=== PATIENT | female | born 1930 | race Caucasian/White ===

== ENCOUNTER 2017-09-03 15:31 | Inpatient (IN) | payer MEDICARE, MEDICAID ==
[~2017-09-03] VITALS: Ht 152.4 cm; Wt 45.4 kg
[~2017-09-03 15:31] MED LIST: ACET-868 PO; ALPR0.25 PO; AMIN30LI2 PO; ASPI325T2 PO; CARV12.5 PO; CRAN425C PO; DIPH25CA83 PO; DOCU-25 PO; ESTR10TA VG; HALO0.5T4 PO; HYDR-552 PO; MULT1TAB11 PO; NA P133E RC; PSYL660P17 PO; VALS80TA2 PO; ZOLP5TAB2 PO
--- NOTE | 2017-09-03 15:45 | NUR ---
AAOX3, BBPA FROM [facility]: FAILURE TO THRIVE. WEAKNESS x 2 DAYS. RESP IS EVEN AND UNLABORED WITH NAD NOTED. SKIN IS WARM AND DRY. PLACED ON MONITOR. ASSISTED TO HOSPITAL GOWN. AWAITING MD FOR EVAL.
[2017-09-03] MEDS ORDERED: IV NS 0.9% 500 ML BAG IV ONE (16:00)
[2017-09-03 16:20] LABS: BASOPHILS % (AUTO) 0.4 % (0.0-2.0); EOSINOPHILS # (AUTO) 0.2 /CMM (0.0-0.7); EOSINOPHILS % (AUTO) 3.9 % (0.0-6.0); HEMATOCRIT 44 % (33-45); HEMOGLOBIN 14.6 g/dL (11.5-14.8); LYMPHOCYTES # (AUTO) 1.6 /CMM (0.8-4.8); LYMPHOCYTES % (AUTO) 26.9 % (20.0-44.0); MEAN CORPUSCULAR HEMOGLOBIN 31 PG (26.0-33.0); MEAN CORPUSCULAR HGB CONC 33 g/dl (31.0-36.0); MEAN CORPUSCULAR VOLUME 94 fL (82-100); MONOCYTES # (AUTO) 0.7 /CMM (0.1-1.30); MONOCYTES % (AUTO) 11.4 % (2.0-12.0); NEUTROPHILS # (AUTO) 3.4 /CMM (1.8-8.9); NEUTROPHILS % (AUTO) 57.4 % (43.0-81.0); PLATELET COUNT (AUTO) 201 /CMM (150-450); RDW COEFFICIENT OF VARIATION 13.9 (11.5-15.0); RED BLOOD CELL COUNT(AUTO) 4.68 MIL/uL (4.0-5.2); WHITE BLOOD COUNT (AUTO) 5.9 K/uL (4.3-11.0)
--- NOTE | 2017-09-03 16:24 | NUR ---
PT TRANSPORTED TO CT.
[2017-09-03 16:31] LABS: CALCIUM, SERUM 8.7 mg/dL (8.5-10.1); CARBON DIOXIDE 29 mmol/L (21-32); CHLORIDE 103 mmol/L (98-107); CREATININE 0.4 mg/dL (0.6-1.3); GLUCOSE 112 mg/dL (74-106); POTASSIUM 3.9 mmol/L (3.5-5.1); SODIUM SERUM 138 mmol/L (136-145); UREA NITROGEN, BLOOD 19 mg/dL (7-18)
[2017-09-03 16:38] LABS: ALANINE AMINOTRANSFERASE 22 U/L (12-78); ALBUMIN 3.1 g/dL (3.4-5.0); ALKALINE PHOSPHATASE 106 U/L (46-116); ASPARTATE AMINOTRANSFERASE 15 U/L (15-37); BILIRUBIN,DIRECT 0.1 mg/dL (0.0-0.2); BILIRUBIN,TOTAL 0.3 mg/dL (0.2-1.0); TOTAL PROTEIN, SERUM 6.7 g/dL (6.4-8.2)
[2017-09-03 16:44] LABS: THYROID STIMULATING HORMONE 1.484 uIU/mL (0.358-3.74)
[2017-09-03] MEDS ORDERED: ASPIRIN 81 MG TAB.CHEW ONE (16:51)
--- NOTE | 2017-09-03 16:51 | NUR ---
DR. MANNY PACK.
[2017-09-03 16:56] LABS: APPEARANCE,URINE SL CLOUDY (CLEAR); BILIRUBIN,URINE NEGATIVE (NEGATIVE); BLOOD, URINE NEGATIVE Ery/uL (NEGATIVE); COLOR,URINE YELLOW (YELLOW); KETONES,URINE NEGATIVE (NEGATIVE); LEUKOCYTE ESTERASE ,URINE NEGATIVE (NEGATIVE); NITRITE, URINE NEGATIVE (NEGATIVE); PROTEIN,URINE NEGATIVE (NEGATIVE); UGLUCOSE NEGATIVE (NEGATIVE); UROBILINOGEN,URINE 0.2 EU/dL (0.2)
[2017-09-03] MEDS ORDERED: ASPIRIN 81 MG TAB.CHEW PO ONE (17:00)
[2017-09-03] MEDS ORDERED: diphenhydrAMINE HCL 50 MG/ML VIAL ONE (17:28)
[2017-09-03] MEDS ORDERED: diphenhydrAMINE HCL 50 MG/ML VIAL IV PRN (17:30)
--- NOTE | 2017-09-03 17:38 | NUR ---
REPORT GIVEN TO PRIMARY NURSE OF 114-1 BY ERIBERTO BANSAL RN.
[2017-09-03 17:50] VITALS: BP 130/49
--- NOTE | 2017-09-03 17:55 | NUR ---
RN NOTES RECEIVED PT FROM ER VIA DONN. PT IS A&0X1, DEMENTED, YORUBA SPEAKING, ON ROOM AIR NO SOB OR DISTRESS NOTED. SR ON THE TELE MONITOR HR 70. AT BEDSIDE. PT AGITATED, HITTING AND KICKING. L FA 18G IV SITE DRY AND INTACT NO IVF. BED LOCKED AND IN LOWEST POSITION, BED ALARM ON, SIDE RAILS UPX3, WILL MONITOR.
--- NOTE | 2017-09-03 17:55 | NUR ---
RN NOTES PT BROUGHT TO TELE WITH NO ADMITTING ORDERS FROM DR BRYANT. CHARGE NURSE MADE AWARE. WILL PAGE DR BRYANT.
[2017-09-03] MEDS ORDERED: IV NS 0.9% 1,000 ML BAG IV PRN (19:00)
--- NOTE | 2017-09-03 19:30 | NUR ---
BOAT CARPENTER MECHANIC INITIAL NOTE PT RECEIVED IN BED AWAKE. A/O X1 AND ABLE TO MAKE SOME NEEDS KNOWN. NOTED WITH CONFUSION AND RESTLESSNESS. ON ROOM AIR AND SATURATING 98%. BREATHING EVEN, REGULAR AND UNLABORED. ASSISTED WITH DINNER AND PT TOLERATED WELL. IV LFA #18 CLEAN, DRY AND FLUSHING WELL WITH FLUIDS RUNNING. BED IN LOWEST POSITION AND LOCKED IN PLACE BED WITH ALARM ON. CALL LIGHT WITHIN REACH AT ALL TIMES. WILL CONTINUE TO MONITOR.
[2017-09-03 20:00] VITALS: BP 123/60
[2017-09-03] MEDS ORDERED: ESTRADIOL 10 MCG XX SCH (20:00)
[2017-09-03] MEDS ORDERED: ACETAMINOPHEN 325 MG TABLET PO PRN (20:00)
[2017-09-03] MEDS ORDERED: NA PHOS,M-B/NA PHOS,DI-BA 1 EA ENEMA RC PRN (20:00)
[2017-09-03] MEDS ORDERED: HYDROCODONE/APAP 5/325MG 1 EACH TABLET PO PRN (20:00)
[2017-09-03] MEDS: IV NS 0.9% 1,000 ML IV PRN (20:51)
--- NOTE | 2017-09-03 23:00 | NUR ---
PACKAGE LINER NOTE PT PUT ON BILATERAL SOFT WRIST RESTRAINTS D/T HITTING STAFF AND PULLING ON IV LINE/ TELE MONITOR AT BEDSIDE. PT REORIENTED TO PLACE AND TIME D/T NOTED CONFUSION. ENCOURAGED TO VENT FEELINGS AND EXPLAINED REASONS FOR RESTRAINTS. WILL CONTINUE TO MONITOR.
[2017-09-04 04:00] VITALS: BP 151/59
--- NOTE | 2017-09-04 06:58 | NUR ---
BANDING MACHINE OPERATOR CLOSING NOTE PT REMAINED STABLE DURING SHIFT. NO SOB. NO C/O PAIN OR DISCOMFORT NOTED. TELE-SINUS RHYTHM. IV IN PLACE WITH FLUIDS RUNNING. ON BILATERAL SOFT WRIST RESTRAINTS. RECHECKED, CIRCULATION PRESENT AND NO DISCOLORATION NOTED. BED IN LOWEST POSITION AND LOCKED IN PLACE. CALL LIGHT WITHIN REACH. WILL ENDORSE TO NEXT SHIFT FOR CONTINUITY OF CARE.
[2017-09-04 07:18] LABS: BASOPHILS % (AUTO) 0.3 % (0.0-2.0); EOSINOPHILS # (AUTO) 0.3 /CMM (0.0-0.7); EOSINOPHILS % (AUTO) 4.8 % (0.0-6.0); HEMATOCRIT 40 % (33-45); HEMOGLOBIN 13.4 g/dL (11.5-14.8); LYMPHOCYTES # (AUTO) 1.8 /CMM (0.8-4.8); LYMPHOCYTES % (AUTO) 31.3 % (20.0-44.0); MEAN CORPUSCULAR HEMOGLOBIN 31 PG (26.0-33.0); MEAN CORPUSCULAR HGB CONC 34 g/dl (31.0-36.0); MEAN CORPUSCULAR VOLUME 93 fL (82-100); MONOCYTES # (AUTO) 0.6 /CMM (0.1-1.30); MONOCYTES % (AUTO) 10.4 % (2.0-12.0); NEUTROPHILS % (AUTO) 53.2 % (43.0-81.0); PLATELET COUNT (AUTO) 183 /CMM (150-450); RDW COEFFICIENT OF VARIATION 13.5 (11.5-15.0); WHITE BLOOD COUNT (AUTO) 5.6 K/uL (4.3-11.0)
[2017-09-04 07:24] LABS: CALCIUM, SERUM 8.1 mg/dL (8.5-10.1); CHLORIDE 104 mmol/L (98-107); CREATININE 0.4 mg/dL (0.6-1.3); GLUCOSE 89 mg/dL (74-106); POTASSIUM 3.8 mmol/L (3.5-5.1); SODIUM SERUM 139 mmol/L (136-145); UREA NITROGEN, BLOOD 10 mg/dL (7-18)
[2017-09-04 07:38] LABS: CARBON DIOXIDE 27 mmol/L (21-32)
[2017-09-04 08:00] VITALS: BP 165/68
[2017-09-04] MEDS ORDERED: Medication Not On Formulary EA (Cranberry Extract (Cranberry) 850 MG) PO SCH (09:00)
[2017-09-04] MEDS: CARVEDILOL 12.5 MG TABLET PO SCH ×2 (09:02→16:29)
[2017-09-04] MEDS: NEOM/POLY B SULF/HC OTIC SUSP 10 ML BOTTLE EACH EAR SCH ×3 (09:05→16:29)
[2017-09-04] MEDS: VALSARTAN 80 MG TABLET PO SCH (09:06)
[2017-09-04] MEDS: ASPIRIN EC 81 MG TABLET.DR PO SCH (09:06)
[2017-09-04 12:00] VITALS: BP 152/51
[2017-09-04] MEDS: PSYLLIUM SEED 1 PKT PACKET PO SCH (12:23)
--- NOTE | 2017-09-04 13:15 | NUR ---
RN NOTE PT STABLE, REPORT GIVEN TO SNEHAL ROIS FOR BRANDT.
[2017-09-04 16:00] VITALS: BP 169/62
--- NOTE | 2017-09-04 16:15 | NUR ---
RN NOTE PAGED DR. BRYANT REGARDING CT SINUSES RESULT "Mild mucosal thickening within the paranasal sinuses. All drainage pathways are obstructed by soft tissue." LEFT MESSAGE WITH MD'S MANUAL MACHINIST ELVIS. PENDING RESPONSE.
[2017-09-04 17:00] VITALS: BP 125/54
[2017-09-04] MEDS: IV NS 0.9% 1,000 ML IV PRN (18:54)
--- NOTE | 2017-09-04 18:57 | NUR ---
end of shift patient resting in bed, breathing even and unlabored. per family LOC at baseline. patient consuming adequate PO intake with assistance from daughter for feeding. no aspiration noted. patient repositioned q2h this shift and provided extensive adl care. no new skin breakdown. no decline in condition. will hand off report to night nurse.
[2017-09-04 20:00] VITALS: BP 143/60
--- NOTE | 2017-09-04 20:00 | NUR ---
RN NOTES RECEIVED PATIENT IN BED WITH NO RESPIRATORY DISTRESS OR SHORTNESS OF BREATH. BREATHING EVEN AND UNLABORED. NO PHYSICAL MANIFESTATION OF PAIN OR DISCOMFORT. ALERT TO SELF AND PLACE. PIV LINE TO LEFT FOREARM PATENT AND INTACT ATTACHED TO NS@50ML/HR TOLERATING WELL. WILL CONTINUE TO MONITOR
--- NOTE | 2017-09-04 20:52 | NUR ---
SON REQUESTED FOR SLEEPING AID FOR HER MOTHER, INFORMED AIDS COUNSELOR FOR [employer] CLEANING DR. WITH ORDERS FOR AMBIEN 5MG PRN QHS. NOTED, WILL CONTINUE TO MONITOR.
[2017-09-04] MEDS ORDERED: ZOLPIDEM TARTRATE 5 MG TABLET PO PRN (21:00)
[2017-09-05] VITALS (7 sets, daily range): BP systolic 109–170; BP diastolic 53–82
--- NOTE | 2017-09-05 07:15 | NUR ---
RN OPENING NOTES RECV'D REPORT FROM NOC RN. PT A&OX2. WEAK. DENIES PAIN. PULLING AT LINES BILAT SOFT WRIST RESTRAINTS. HOB ELEVATED. 22G LEFT FA IV. SIDE RAILS X2. SR TELE. NO SOB AT PRESENT 96% RA. CALL LIGHT IN REACH. WILL CONT TO MONITOR CLOSELY.
--- NOTE | 2017-09-05 07:17 | NUR ---
RN NOTES RESTING COMFORTABLY IN BED WITH NO DISTRESS NOTED. WRIST RESTRAINT REMOVED EVERY TWO HOURS FOR CIRCULATION AND HYGIENE. KEPT CLEAN AND DRY. WILL ENDORSE TO AM SHIFT FOR CONTINUITY OF CARE
[2017-09-05] MEDS: VALSARTAN 80 MG TABLET PO SCH (09:04)
[2017-09-05] MEDS: ASPIRIN EC 81 MG TABLET.DR PO SCH (09:04)
[2017-09-05] MEDS: CARVEDILOL 12.5 MG TABLET PO SCH ×2 (09:04→17:32)
[2017-09-05] MEDS: NEOM/POLY B SULF/HC OTIC SUSP 10 ML BOTTLE EACH EAR SCH ×3 (09:05→17:26)
[2017-09-05] MEDS: PSYLLIUM SEED 1 PKT PACKET PO SCH (11:00)
[2017-09-05] MEDS: NITROGLYCERIN 30 GM TUBE TP SCH ×2 (11:00→21:06)
[2017-09-05] MEDS: BOOST PLUS FOOD-VANILLA 237 ML BOX PO SCH ×2 (12:43→17:27)
--- NOTE | 2017-09-05 18:00 | NUR ---
RN CLOSING NOTES RECV'D REPORT FROM NOC RN. PT A&OX2. WEAK. DENIES PAIN. PULLING AT LINES BILAT SOFT WRIST RESTRAINTS. HOB ELEVATED. 22G LEFT FA IV. SIDE RAILS X2. SR TELE. NO SOB AT PRESENT 95% RA. CALL LIGHT IN REACH. WILL CONT TO MONITOR CLOSELY.
--- NOTE | 2017-09-05 19:54 | NUR ---
RN INITIAL NOTES RECV'D REPORT FROM AM RN. PT A&OX2. WEAK. DENIES PAIN. PULLING AT LINES BILAT SOFT WRIST RESTRAINTS. HOB ELEVATED. 22G LEFT FA IV. SIDE RAILS X2. SR TELE. NO SOB AT PRESENT 96% RA. CALL LIGHT IN REACH. WILL CONT TO MONITOR CLOSELY
[2017-09-06 04:00] VITALS: BP 161/61
[2017-09-06 05:00] VITALS: BP 161/61
--- NOTE | 2017-09-06 06:32 | NUR ---
RN CLOSING NOTES ENDORSED REPORT TO AM RN. PT A&OX2. WEAK. DENIES PAIN. PULLING AT LINES BILAT SOFT WRIST RESTRAINTS. HOB ELEVATED. 22G LEFT FA IV. SIDE RAILS X2. SR TELE. NO SOB AT PRESENT 96% RA. CALL LIGHT IN REACH. WILL CONT TO MONITOR CLOSELY
--- NOTE | 2017-09-06 07:40 | NUR ---
RN NOTES: PT RECEIVED IN STABLE CONDITION. ALERT AWAKE OX2. NO BREATHING DIFFICULTY NOTED. IV SITE INTACT, RUNNING WITH IV FLUIDS ORDERED. SAFETY MEASURES OBSERVED. ON RESTRAINTS BILATERAL SOFT WRIST FOR SAFETY. ALL NEEDS ATTANDED. CONTINUE TO MONITOR.
[2017-09-06 08:00] VITALS: BP_SYST 129; BP_SYST 191; BP_DIAS 57; BP_DIAS 83
[2017-09-06] MEDS: VALSARTAN 80 MG TABLET PO SCH (08:54)
[2017-09-06] MEDS: ASPIRIN EC 81 MG TABLET.DR PO SCH (08:54)
[2017-09-06] MEDS: CARVEDILOL 12.5 MG TABLET PO SCH ×2 (08:54→16:55)
[2017-09-06] MEDS: NITROGLYCERIN 30 GM TUBE TP SCH ×2 (08:54→21:35)
[2017-09-06] MEDS: NEOM/POLY B SULF/HC OTIC SUSP 10 ML BOTTLE EACH EAR SCH ×3 (08:55→16:55)
[2017-09-06] MEDS: BOOST PLUS FOOD-VANILLA 237 ML BOX PO SCH ×4 (09:01→16:55)
[2017-09-06] MEDS: PSYLLIUM SEED 1 PKT PACKET PO SCH (11:45)
[2017-09-06] MEDS: IV NS 0.9% 1,000 ML IV PRN (11:45)
[2017-09-06 16:00] VITALS: BP 146/64
--- NOTE | 2017-09-06 19:00 | NUR ---
RN NOTES: PT REMAINS STABLE DURING SHIFT. NO ANY SIGNIFICANT CHANGES NOTED DURING SHIFT. SAFETY MEASURES OBSERVED. ENDORSED TO NEXT SHIFT FOR CONTINUITY OF CARE.
[2017-09-06 20:00] VITALS: BP 142/73
--- NOTE | 2017-09-06 20:13 | NUR ---
RN NOTES, PATIENT ON BED AWAKE A/OX1. ABLE TO ANSWER YES/NO QUESTIONS, BREATHING EVEN AND UNLABORED, NO S/S OF ANY ACUTE DISTRESS, SOB, OR PAIN AT THIS TIME. IV SITE IN LEFT FA 18G, RUNNING WITH NS AT 50ML/HR INTACT AND PATENT. NO S/S OF ANY INFILTRATION, BLEEDING OR ABNORMALITY NOTED, ON BILATERAL SOFT WRIST RESTRAINS AT THIS TIME R/T PATIENT TRYING TO PULL TUBINGS, CIRCULATION CHECKED, NO BRUISING, OR REDNESS NOTED AT THIS TIME, PT ABLE TO MOVE EXTREMITIES, BED LOCKED IN THE LOWEST POSSIBLE POSITION, CALL LIGHT W/I REACH, KEPT DRY AND CLEAN AT ALL TIMES, REPOSITION PROVIDED NEEDED, WILL CONTINUE TO MONITOR CLOSELY.
[2017-09-06 22:00] VITALS: BP 142/73
[2017-09-07 04:00] VITALS: BP 141/74
--- NOTE | 2017-09-07 06:37 | NUR ---
RN NOTES RESIDENT ASLEEP WELL ON BED. BREATHING EVEN AND UNLABORED. NO FACIAL COMPLAIN OF PAIN. PT COMMUNICATE AT THIS TIME. COMPLIANT WITH CARE. BODY CHECKED DONE PHOTO TAKEN FOR WEEKLY CHECKED. KEPT PT CLEAN AND COMFORTABLE IN BED. NI SIGNIFICANT CHANGE OF CONDITION THROUGHOUT THE SHIFT. ALL DUE MEDS TOLERATED WELL. KEPT CLEAN AND DRY. WILL ENDORSED CONTINUITY OF CARE TO AM NURSE.
--- NOTE | 2017-09-07 07:30 | NUR ---
INITIAL NOTE BED SIDE REPORT. PATIENT RESTING IN BED. ORIENTED TO NAME. RESPONDS TO SIMPLE QUESTIONS IN LATVIAN. FOLLOWS SIMPLE COMMANDS. CONFUSED PER BASELINE PER REPORT. BREATHING EVEN AND UNLABORED ON ROOM AIR. DENIES PAIN. CALL LIGHT IN REACH.
[2017-09-07 08:00] VITALS: BP 119/66
[2017-09-07] MEDS: BOOST PLUS FOOD-VANILLA 237 ML BOX PO SCH ×3 (08:13→17:08)
[2017-09-07] MEDS: VALSARTAN 80 MG TABLET PO SCH (08:14)
[2017-09-07] MEDS: ASPIRIN EC 81 MG TABLET.DR PO SCH (08:14)
[2017-09-07] MEDS: CARVEDILOL 12.5 MG TABLET PO SCH ×2 (08:15→17:07)
[2017-09-07] MEDS: NITROGLYCERIN 30 GM TUBE TP SCH ×2 (08:16→21:22)
[2017-09-07] MEDS: NEOM/POLY B SULF/HC OTIC SUSP 10 ML BOTTLE EACH EAR SCH ×3 (08:17→17:07)
[2017-09-07] MEDS: PSYLLIUM SEED 1 PKT PACKET PO SCH (11:06)
[2017-09-07 12:00] VITALS: BP 104/47
--- NOTE | 2017-09-07 13:53 | NUR ---
RN NOTE SEEN AND EXAMINED BY DR. BRYANT WITH FAMILY AT BED SIDE. TEAM DISCUSSED PLAN OF CARE. MD GAVE NEW VERBAL ORDERS- INPUTTED.
--- NOTE | 2017-09-07 14:42 | NUR ---
RN NOTE DR. BRYANT AWARE THAT PER FAMILY PATIENT HAS CHEST PAIN WHEN COUGHING. UNABLE TO SCALE. AUDIBLE BREATH SOUNDS, THROUGHOUT RHONCHI- DR. BRYANT AWARE. FAMILY AT BED SIDE STIMULATING PATIENT- EDUCATED TO PROVIDE CALM ENVIRONMENT TO RELIEVE PAIN. PER DR. BRYANT, CONTINUE WITH PLAN OF CARE, CXR IN THE MORNING. OFFERED PAIN RELIEVING MEDICATION- PER PATIENT'S , PREFER NOT TO ADMIN D/T "RISK OF AFFECTING HER LIVER". WILL CONTINUE TO MONITOR.
[2017-09-07 14:55] VITALS: BP 127/78
[2017-09-07] MEDS ORDERED: MIRTAZAPINE 15 MG TABLET PO PRN (16:00)
--- NOTE | 2017-09-07 16:45 | NUR ---
rn note paged dr. Powers regarding patient itching and slight redness on LLE. pending response.
--- NOTE | 2017-09-07 19:00 | NUR ---
RN NOTES, RECEIVED PATIENT IN BED, AWAKE AND ORIEDTED TO SELF ABLE TO ANSWER YES NO QUESTIONS, DENIES DISCOMFORT OR PAIN AT THIS TIME, BREATHING EVEN AND UNLABORED, NO S.S OF ACUTE DISTRESS OR SOB, AFEBRILE AT THIS TIME, HEPLOCK IN LEFT AC NOTED, INTACT NO S/S OF INFECTION NOTED AT THIS TIME. ON BILATERAL SOFT WRIST RESTRAIN, NO REDNESS BLEEDING OR ABNORMALITY NOTED AT SITE, CIRCULATION WNL, SITTER AT BEDSIDE, AFEBRILE, KEPT DRY AND CLEAN AT ALL TIMES, BED LOCKED AND IN THE LOWEST POSITION, CALL LIGHT W/I REACH, WILL CONTINUE TO MONITOR CLOSELY.
[2017-09-07] MEDS: ALBUTEROL HALF STRENGTH 1.25 MG/3 ML VIAL.NEB NEB SCH (19:32)
--- NOTE | 2017-09-07 19:35 | NUR ---
end of shift resting in bed. all needs met. patient clean. breathing stable. denies chest pain at this time. LOC @ baseline- responds to simple questions. no complications with iv. Dr. Powers did not respond regarding itching, somewhat resolved with lotion. informed night nurse. call light in reach. gave report to night nurse.
[2017-09-07 20:00] VITALS: BP 153/55
[2017-09-07] MEDS ORDERED: ATORVASTATIN 10 MG TABLET PO SCH (22:00)
[2017-09-08] MEDS: ALBUTEROL HALF STRENGTH 1.25 MG/3 ML VIAL.NEB NEB SCH ×5 (00:05→15:10)
[2017-09-08 04:00] VITALS: BP 116/56
--- NOTE | 2017-09-08 06:58 | NUR ---
RN CLOSING NOTES, PATIEN ASLEEP IN BED, NO S/S OF PAIN OR DISCOMFORT, NO SOB OR ACUTE DISTRESS NOTED AT THIS TIME, ALL NEEDS PROVIDED, IV SITE INTACT, NO BLEEDING NOTED, BEHAVIOR NOTED PATIENT IS NOT COMPLIANT WITH CARE, WITH EPISODES OF KICKING AND PINCHING DURING CARE, KEPT DRY AND CLEAN AT ALL TIMES, WILL ENDORSE CONTINUITY OF CARE.
[2017-09-08 07:16] LABS: BASOPHILS % (AUTO) 0.3 % (0.0-2.0); EOSINOPHILS # (AUTO) 0.3 /CMM (0.0-0.7); EOSINOPHILS % (AUTO) 4.6 % (0.0-6.0); HEMATOCRIT 42 % (33-45); LYMPHOCYTES # (AUTO) 1.8 /CMM (0.8-4.8); LYMPHOCYTES % (AUTO) 25.1 % (20.0-44.0); MEAN CORPUSCULAR HEMOGLOBIN 31 PG (26.0-33.0); MEAN CORPUSCULAR HGB CONC 34 g/dl (31.0-36.0); MEAN CORPUSCULAR VOLUME 93 fL (82-100); MONOCYTES # (AUTO) 0.6 /CMM (0.1-1.30); MONOCYTES % (AUTO) 8.8 % (2.0-12.0); NEUTROPHILS # (AUTO) 4.4 /CMM (1.8-8.9); NEUTROPHILS % (AUTO) 61.2 % (43.0-81.0); PLATELET COUNT (AUTO) 215 /CMM (150-450); RDW COEFFICIENT OF VARIATION 13.7 (11.5-15.0); RED BLOOD CELL COUNT(AUTO) 4.47 MIL/uL (4.0-5.2); WHITE BLOOD COUNT (AUTO) 7.1 K/uL (4.3-11.0)
--- NOTE | 2017-09-08 07:30 | NUR ---
MS GABRIEL OPENING RECEIVED PATIENT A/OX1. PATIENT CURRENTLY HAS RESTRAINTS ON; WILL F/U WITH MD IF WE CAN GET SITTER ORDER FOR PATIENT. RESTRAINTS RELEASED AND ROM PROVIDED. PATIENT DOES PUSH AND ATTEMPT TO HIT STAFF AT TIMES. NO S/S SOB, DIFFICULTY BREATHING OR PAIN AT THIS TIME. FLUIDS PROVIDED, POSITION CHANGED. PATIENT APPEARS STABLE AT THIS TIME. WILL ROUND Q2H OR LESS PER NEEDS. HEELS AND ELBOWS OFFLOADED PATIENT TOLERATES
[2017-09-08 07:39] LABS: CALCIUM, SERUM 8.3 mg/dL (8.5-10.1); CARBON DIOXIDE 26 mmol/L (21-32); CHLORIDE 102 mmol/L (98-107); CREATININE 0.4 mg/dL (0.6-1.3); GLUCOSE 93 mg/dL (74-106); POTASSIUM 3.7 mmol/L (3.5-5.1); SODIUM SERUM 138 mmol/L (136-145); UREA NITROGEN, BLOOD 11 mg/dL (7-18)
[2017-09-08 08:00] VITALS: BP 150/58
[2017-09-08] MEDS: VALSARTAN 80 MG TABLET PO SCH (08:59)
[2017-09-08] MEDS: CARVEDILOL 12.5 MG TABLET PO SCH ×2 (08:59→16:19)
[2017-09-08] MEDS: ASPIRIN EC 81 MG TABLET.DR PO SCH (08:59)
[2017-09-08] MEDS: NEOM/POLY B SULF/HC OTIC SUSP 10 ML BOTTLE EACH EAR SCH ×3 (09:00→16:19)
[2017-09-08] MEDS: NITROGLYCERIN 30 GM TUBE TP SCH (09:00)
--- NOTE | 2017-09-08 09:00 | NUR ---
MS RN NOTES NITRO DOES NOT HAVE DOSAGE OR USAGE ON EMAR. WILL HOLD AND CONFIRM WITH
--- NOTE | 2017-09-08 09:10 | NUR ---
MS RN NOTES PATIENT RESTRAINTS RELEASED. PATIENT IS RESPONDING TO QUESTIONS WITH YES AND NO. A/OX1. FOLLOWS COMMANDS AND ALLOWING SKIN CARE AND HYGIENE. PATIENT IV COVERED WITH PROTECTANT SLEEVE AND PATIENT IS COOPERATIVE. RESTRAINTS RELEASED AND REMOVED. BED ALARM ON.
[2017-09-08] MEDS: BOOST PLUS FOOD-VANILLA 237 ML BOX PO SCH ×3 (09:13→16:18)
[2017-09-08] MEDS: PSYLLIUM SEED 1 PKT PACKET PO SCH (10:13)
[2017-09-08] MEDS: SALINE NASAL SPRAY 0.65% 1 BOTTLE BOTTLE NS SCH ×2 (10:15→14:44)
--- NOTE | 2017-09-08 13:43 | NUR ---
MS RN NOTES DR BRYANT AT BEDSIDE. PER MD DC TODAY AND CONTINUE ALL MEDICATIONS.
--- NOTE | 2017-09-08 14:04 | NUR ---
MS RN NOTES NOTIFIED MD BRYANT PATIENT HAVING DIFFICULTY SWALLOWING PILLS. PER MD OK TO CHANGE ASA 81 MG TO CHEWABLE
[2017-09-08 16:00] VITALS: BP 134/53
--- NOTE | 2017-09-08 16:01 | NUR ---
MS RN NOTES CALLED [facility] AND SPOKE WITH LEONEL RIOS AND GAVE REPORT
[2017-09-08 16:19] VITALS: BP 130/52
--- NOTE | 2017-09-08 19:08 | NUR ---
MS DIRECTOR SEMICONDUCTOR PATIENT LEFT IN STABLE CONDITION. NO COMPLICATIONS NOTED. NO SOB, DIFFICULTY BREATHING OR PAIN. IV REMOVED PRESSURE AND DRESSING APPLIED NO BLEEDING NOTED. ALL DUE MEDS GIVEN AND ALL NEEDS MET. PATIENT AWARE OF DC. PATIENT UNABLE TO SIGN DC MATERIAL HOWEVER REPORT CALLED TO LEONEL RIOS
[2017-09-09] MEDS ORDERED: ASPIRIN 81 MG TAB.CHEW PO SCH (09:00)
== END 2017-09-08 19:02 | DRG 280 ==
LOC: ER 15:33 → TELE1 17:18 → MEDSG1 09-05 10:57
PROVIDERS: ADMIT Internal Medicine; ATTEND Internal Medicine
DX: I21.4 Non-ST elevation (NSTEMI) myocardial infarction (principal); G93.40 Encephalopathy, unspecified; G30.9 Alzheimer's disease, unspecified; E11.9 Type 2 diabetes mellitus without complications; F02.80 Dementia in other diseases classified elsewhere, unspecified severity, without behavioral disturbance, psychotic disturbance, mood disturbance, and anxiety; N39.0 Urinary tract infection, site not specified; I67.2 Cerebral atherosclerosis; R62.7 Adult failure to thrive; I70.0 Atherosclerosis of aorta; Z79.82 Long term (current) use of aspirin; M19.90 Unspecified osteoarthritis, unspecified site; K21.9 Gastro-esophageal reflux disease without esophagitis; Z79.899 Other long term (current) drug therapy; Z87.440 Personal history of urinary (tract) infections; Z87.891 Personal history of nicotine dependence; I25.2 Old myocardial infarction; I25.10 Atherosclerotic heart disease of native coronary artery without angina pectoris; I10 Essential (primary) hypertension; F20.9 Schizophrenia, unspecified; R91.1 Solitary pulmonary nodule
CPT/HCPCS: 36415; 70450-TC; 70486-TC; 71010-TC; 80048-TC; 80076-TC; 81000-TC; 84443-TC; 84484-TC; 85025-TC; 87081-TC; 87086-TC; 87400; 92611-TC; 93307-TC; 97116-TC; 97530-TC; J1200; J7030; J7040

== ENCOUNTER 2018-03-24 20:02 | Inpatient (IN) | payer MEDICARE, MEDICAID ==
[~2018-03-24] VITALS: Ht 154.9 cm; Wt 47.6 kg
[~2018-03-24 20:02] MED LIST changes: -AMIN30LI2 PO; +ASPI-992 PO; -ASPI325T2 PO; -CRAN425C PO; +CRAN425C6 PO; +DOCU-141 PO; -DOCU-25 PO
--- NOTE | 2018-03-24 20:35 | NUR ---
BBEMS FROM FROM [facility] C/O COUGH/CONGESTION/RUNNY NOSE X1 DAY. [facility] 10. RESP EVEN AND UNLABORED. NO S/S OF ACUTE DISTRESS NOTED. VSS. PT HOT AND DRY TO TOUCH. PT PLACED ON BAFFLE MOUNTER AND POX. PT SAFETY AND COMFROT MEASURES IN PLACE. FAMILY MEMBER BEDSIDE. AWAITING MD FOR EVAL.
[2018-03-24 21:06] LABS: BASOPHILS # (AUTO) 0.1 /CMM (0.0-0.2); BASOPHILS % (AUTO) 1.2 % (0.0-2.0); EOSINOPHILS % (AUTO) 4.8 % (0.0-6.0); HEMATOCRIT 44 % (33-45); HEMOGLOBIN 14.8 g/dL (11.5-14.8); LYMPHOCYTES # (AUTO) 1.3 /CMM (0.8-4.8); MEAN CORPUSCULAR HGB CONC 34 g/dl (31.0-36.0); MEAN CORPUSCULAR VOLUME 92 fL (82-100); MONOCYTES # (AUTO) 0.7 /CMM (0.1-1.30); MONOCYTES % (AUTO) 6.9 % (2.0-12.0); NEUTROPHILS # (AUTO) 6.9 /CMM (1.8-8.9); NEUTROPHILS % (AUTO) 73.1 % (43.0-81.0); PLATELET COUNT (AUTO) 177 /CMM (150-450); RDW COEFFICIENT OF VARIATION 12.9 (11.5-15.0); RED BLOOD CELL COUNT(AUTO) 4.73 MIL/uL (4.0-5.2); WHITE BLOOD COUNT (AUTO) 9.5 K/uL (4.3-11.0)
[2018-03-24 21:17] LABS: CALCIUM, SERUM 8.4 mg/dL (8.5-10.1); CARBON DIOXIDE 29 mmol/L (21-32); CHLORIDE 100 mmol/L (98-107); CREATININE 0.5 mg/dL (0.6-1.3); GLUCOSE 115 mg/dL (74-106); POTASSIUM 4.2 mmol/L (3.5-5.1); SODIUM SERUM 134 mmol/L (136-145); UREA NITROGEN, BLOOD 14 mg/dL (7-18)
[2018-03-24] MEDS ORDERED: ACETAMINOPHEN 650 MG/20.3 ML UDC PO ONE (21:30)
[2018-03-24] MEDS ORDERED: ACETAMINOPHEN 650 MG/SUPP.RECT RC ONE ×2 (21:40→22:00)
--- NOTE | 2018-03-24 21:44 | NUR ---
CALLED 'S OFFICE, DARCI EDWARDS NP ONCOLOGY CONSULTANT, TRANSFERRED CALL TO
--- NOTE | 2018-03-24 22:04 | NUR ---
CALLED NURSING SUP. FOR MS BED
--- NOTE | 2018-03-24 22:09 | NUR ---
MS 306-2 KING IS THE NURSE, DX:PNEUMONIA, ADMITTED BY DARCI EDWARDS NP
[2018-03-24] MEDS ORDERED: PIPERACILLIN /TAZOBACTAM 3.375 G VIAL IV ONE (22:14)
[2018-03-24] MEDS ORDERED: PIPERACILLIN /TAZOBACTAM 3.375 G in IV D5W 50 ML IV ONE (22:30)
[2018-03-24 22:40] LABS: APPEARANCE,URINE SL CLOUDY (CLEAR); BILIRUBIN,URINE NEGATIVE (NEGATIVE); BLOOD, URINE 1+ Ery/uL (NEGATIVE); COLOR,URINE YELLOW (YELLOW); KETONES,URINE NEGATIVE (NEGATIVE); LEUKOCYTE ESTERASE ,URINE 1+ (NEGATIVE); NITRITE, URINE POSITIVE (NEGATIVE); PROTEIN,URINE NEGATIVE (NEGATIVE); UGLUCOSE NEGATIVE (NEGATIVE); UROBILINOGEN,URINE 0.2 EU/dL (0.2)
[2018-03-24 22:45] LABS: BACTERIA,URINE Many /HPF (None Seen); SQUAMOUS EPITHELIAL CELL,UR Moderate /HPF (None Seen); WBC,URINE 51-80 /HPF (0-3)
--- NOTE | 2018-03-24 22:49 | NUR ---
REPORT GIVEN TO KING FOR BRANDT
[2018-03-24 23:00] VITALS: BP 127/63
--- NOTE | 2018-03-24 23:00 | NUR ---
MS RN ADMITTING NOTES: ADMITTED AN 87 YO FEMALE PATIENT WHO WAS BROUGHT TO ER FROM [facility] FOR COUGH AND CONGESTION, WITH INITIAL DIAGNOSIS OF PNA. PATIENT WAS BROUGHT TO MS FLOOR VIA GURNEY, AOX1, WITH MINIMAL VERBAL RESPONSE. APPEARS CALM AND IN NO DISTRESS, BUT UNCOOPERATIVE AND COMBATIVE AT TIMES. ON O2 AT 2 LPM VIA NC, BREATHING EVEN AND UNLABORED, BREATH SOUNDS CLEAR TO AUSCULTATION. PATIENT HAS PRODUCTIVE, THICK GREENISH ORAL AND NASAL SECRETIONS, ABLE TO COUGH AND BLOW NOSE WITH ASSIST. ATTEMPTED TO SUCTION MOUTH, HOWEVER, PATIENT BECAME COMBATIVE. NOTED BLE TO HAVE SEVERE WEAKNESS, AND UPPER EXTREMITIES ARE CONTRACTED, BUT SHE IS ABLE TO WITHDRAW THEM. PIV OVER LFA G 20 INTACT AND PATENT TO FLUSH. ADMITTING CARE DONE. PROVIDED FOR COMFORT AND SAFETY. BED IN LOWEST AND LOCKED POSITION, SIDERAILS UP X 3, MAINTAINED HOB ELEVATED. CALL LIGHT WITHIN REACH. , PENG LEONARDOIVÁN AT BEDSIDE TO PROVIDE HEALTH HX AND INFORMATION. WILL CONT TO MONITOR.
--- NOTE | 2018-03-24 23:54 | NUR ---
RN NOTES: CALLED DARCI EDWARDS NP FOR ADMITTING ORDERS.
[2018-03-25] MEDS: ALBUTEROL HALF STRENGTH 1.25 MG/3 ML VIAL.NEB NEB SCH ×5 (01:00→19:37)
[2018-03-25] MEDS ORDERED: ACETAMINOPHEN 325 MG TABLET PO PRN ×2 (01:00→09:00)
[2018-03-25] MEDS ORDERED: HYDROCODONE/APAP 5/325MG 1 EACH TABLET PO PRN ×2 (01:00→09:00)
[2018-03-25] MEDS ORDERED: CEFTRIAXONE 1 G VIAL ONE (01:32)
[2018-03-25] MEDS: CEFTRIAXONE 1 G in IV NS 0.9% 50 ML IV SCH (01:34)
[2018-03-25] MEDS: IV NS 0.9% 1,000 ML IV PRN (01:34)
--- NOTE | 2018-03-25 06:48 | NUR ---
MS RN CLOSING NOTES: PATIENT IN BED, ASLEEP, AWAKENS EASILY TO TOUCH. ON O2 AT 2 LPM VIA NC, BREATHING EVEN AND UNLABORED. PIV OVER LFA G20 INTACT AND INFUSING WELL WITH NS RUNNING AT 75 ML/HR. DUE MEDS GIVEN . PROVIDED FOR COMFORT AND SAFETY. BED IN LOWEST AND LOCKED POSITION, SIDERAILS UP X 3, BED ALARMS ON. WILL ENDORSE TO AM RN FOR BRANDT.
[2018-03-25] MEDS ORDERED: CHOL100044 PO (07:34)
[2018-03-25] MEDS ORDERED: MIRT7.5T10 PO (07:34)
[2018-03-25] MEDS ORDERED: MAGN400O6 PO (07:34)
[2018-03-25] MEDS ORDERED: SODI45SP10 BNOSTRILS (07:34)
[2018-03-25] MEDS ORDERED: ATOR10TA PO (07:34)
[2018-03-25] MEDS ORDERED: ASPI-1169 PO (07:34)
[2018-03-25 08:00] VITALS: BP 103/36
[2018-03-25] MEDS ORDERED: HOME MED MISCELLANEOUS XX SCH (09:00)
[2018-03-25] MEDS ORDERED: NA PHOS,M-B/NA PHOS,DI-BA 1 EA ENEMA RC PRN (09:00)
[2018-03-25] MEDS ORDERED: MAGNESIUM HYDROXIDE 30 ML UDC PO PRN (09:00)
--- NOTE | 2018-03-25 09:20 | NUR ---
LACE AND TEXTILES RESTORER NOTE PT is in room with patient
[2018-03-25] MEDS: ASPIRIN 81 MG TAB.CHEW PO SCH (11:59)
[2018-03-25] MEDS: MULTIVIT, IRON, MIN NO. 8, FA 1 TAB PO SCH (11:59)
[2018-03-25] MEDS: CHOLECALCIFEROL 1,000 UNIT TABLET (VIT D3) PO SCH (11:59)
[2018-03-25] MEDS: VALSARTAN 80 MG TABLET PO SCH (12:00)
[2018-03-25] MEDS: CARVEDILOL 12.5 MG TABLET PO SCH ×2 (12:00→19:30)
[2018-03-25] MEDS: PSYLLIUM SEED 1 PKT PACKET PO SCH (12:01)
[2018-03-25] MEDS: Z GUARD REMEDY 2 OZ OINT TP SCH (12:06)
--- NOTE | 2018-03-25 13:00 | NUR ---
SOFTWARE PACKAGING ENGINEER NOTE Patients and son arrived;
[2018-03-25 16:00] VITALS: BP 143/63
--- NOTE | 2018-03-25 16:08 | NUR ---
AFSHIN NOTE Saline given two sprays in each nostril without and resistance or complications, pt tolerated well; Unable to document due to unit listed by pharmacy is per bottle instead of per sprays; called pharmacy for change, Pharmacy unable to change Addendum: 03/25/18 at 1613 by LAKESHA JHAVERI RN Lakesha Jhaveri LVN
--- NOTE | 2018-03-25 16:13 | NUR ---
0954 SUPERVISOR MAINSPRING FABRICATION NOTE Pt in room in bed aao, skin dry intact; incontinent of BM soft/brown and urine; Lotion applied to skin; Pt upper body contraction; LFA IV in place site dry intact no redness or pain noted at site; NS running @75ml/hr pt tolerating well; pt able to verbal express/ physically gesture desires; Pt ate 50% of breakfast; Lakesha Jhaveri LVN Addendum: 03/25/18 at 1652 by LAKESHA JHAVERI RN bed alarm on will continue to monitor patient
--- NOTE | 2018-03-25 19:50 | NUR ---
MS AFSHIN INITIAL NOTES RECEIVED REPORT FROM AM NURSE AND SEEN THE PT IN BED AWAKE AND ALERT CONFUSION NOTED . NS 75ML /HR INFUSING AT THIS TIME ON HER LEFT FOREARM NO SIGNS OF ANY SOB NOTED OR ANY ACUTE DISTRESS. SKIN WARM AND DRY TO TOUCH. KEPT HER WARM AND COMFORTABLE AT ALL TIMES. WILL CONTINUE TO MONITOR. BED ALARM SET FOR SAFETY.
[2018-03-25 20:00] VITALS: BP 159/70
[2018-03-25 20:33] VITALS: BP 159/70
[2018-03-25] MEDS: ATORVASTATIN 10 MG TABLET PO SCH (21:23)
[2018-03-25] MEDS: MIRTAZAPINE 15 MG TABLET PO SCH (21:23)
[2018-03-26] MEDS: CEFTRIAXONE 1 G in IV NS 0.9% 50 ML IV SCH (01:19)
[2018-03-26] MEDS: IV NS 0.9% 1,000 ML IV PRN ×2 (05:27→17:14)
--- NOTE | 2018-03-26 06:55 | NUR ---
MS PRESSURE SEALER AND TESTER CLOSING NOTES PT BACK TO SLEEP AFTER SPONGE BATH RENDERED. STABLE ANEUDY THE NIGHT , NO SIGNS OF ANY DISCOMFORT OR ANY ACUTE DISTRESS NOTED. ALL DUE MEDS GIVEN AND ALL NEEDS MET. REPOSITION PT FOR COMFORT. BED ALARM SET FOR PT SAFETY. KEPT HER WARM AND COMFORTABLE AT ALL TIMES. IVF STILL INFUSING ON HER LEFT FOREARM PATENT AND INTACT, COVERED WITH KERLIX. ENDORSE TO AM NURSE.
--- NOTE | 2018-03-26 07:15 | NUR ---
RN NOTES PATIENT SLEEPING BUT EASILY AROUSABLE, BREATHING EVEN AND UNLABORED, NO SOB NOTED, IV ON LEFT FA PATENT AND FLUSHES WELL, IVF INFUSING AND TOLERATING WELL, NO DISTRESS NOTED, NEEDS ATTENDED, KEPT PATIENT COMFORTABLE, SAFETY MEASURES IN PLACED, BED ALARM ON, CALL LIGHT WITHIN REACH, WILL CONTINUE TO MONITOR.
[2018-03-26] MEDS: ALBUTEROL HALF STRENGTH 1.25 MG/3 ML VIAL.NEB NEB SCH ×4 (07:36→19:09)
[2018-03-26 08:00] VITALS: BP 166/86
[2018-03-26] MEDS: CHOLECALCIFEROL 1,000 UNIT TABLET (VIT D3) PO SCH (08:25)
[2018-03-26] MEDS: SALINE NASAL SPRAY 0.65% 1 BOTTLE BOTTLE NS SCH ×3 (08:26→17:10)
[2018-03-26] MEDS: CARVEDILOL 12.5 MG TABLET PO SCH ×2 (08:26→17:11)
[2018-03-26] MEDS: MULTIVIT, IRON, MIN NO. 8, FA 1 TAB PO SCH (08:26)
[2018-03-26] MEDS: ASPIRIN 81 MG TAB.CHEW PO SCH (08:26)
[2018-03-26] MEDS: VALSARTAN 80 MG TABLET PO SCH (08:26)
[2018-03-26] MEDS: Z GUARD REMEDY 2 OZ OINT TP SCH (08:26)
--- NOTE | 2018-03-26 10:17 | NUR ---
WOUND CARE CONSULT: PT PRESENTS WITH INCONTINENCE OF STOOL AND SACRAL SCAR, PRESENT ON ADMISSION. PT COMBATIVE AT TIMES. ALL SKIN PROTECTION MEASURES DISCUSSED WITH NURSING STAFF. WILL SEE PRN. IN AGREEMENT WITH PLAN OF CARE.
[2018-03-26] MEDS: PSYLLIUM SEED 1 PKT PACKET PO SCH (10:40)
--- NOTE | 2018-03-26 10:40 | NUR ---
RN NOTES PATIENT HAD SOFT BUT LOOSE STOOL. XOCHITL CARE RENDERED.
--- NOTE | 2018-03-26 10:55 | NUR ---
WOUND CARE: SPOKE WITH AIRPORT OPERATIONS SPECIALIST REGARDING LOW AIRLOSS OVERLAY. DUE TO SAFETY CONCERNS FOR PT , LOW AIRLOSS OVERLAY NOT RECOMMENDED AT THIS TIME. VANCE ISOFLEX LOW AIRLOSS BED TO BE PLACED. DISCUSSED WITH NURSING STAFF.
[2018-03-26 16:00] VITALS: BP 156/78
--- NOTE | 2018-03-26 18:49 | NUR ---
RN NOTES PATIENT A/OX1, BREATHING EVEN AND UNLABORED, NOTED WITH NON-PRODUCTIVE COUGH, NO S/SX OF PAIN OR DISCOMFORT AT THIS TIME, PIV PATENT AND INTACT, IVF INFUSING AND TOLERATING WELL, PATIENT TURNED AND REPOSITIONED EVERY 2 HOURS, SKIN CARE RENDERED, OFFLOADED HEELS, NEEDS ATTENDED AND MET, CALL LIGHT WITHIN REACH, SAFETY MEASURES IN PLACED, WILL ENDORSE TO FILTER PLANT OPERATOR FOR BRANDT.
--- NOTE | 2018-03-26 19:20 | NUR ---
RN NOTES: RECEIVED AWAKE ON BED, ON AT 2L/MIN,A/0X 1,MARTINIQUAIS SPEAKING, SHE LOOKS SLEEPY,OPENING EYES WHEN HER NAME IS CALLED, IVF ON ONGOING NS AT 75 ML/HR, LFA G#20 INTACT AND PATENT,FALL,SAFETY AND ASPIRATION PRECAUTION OBSERVED, KEPT ON SEMI FOWLERS POSITION, BED LOW AND LOCKED AND KEPT CALL LIGHT WITHIN EASY REACH.
--- NOTE | 2018-03-26 19:41 | NUR ---
RN NOTES: AWAKE SHE IS HUMMING SOME SOUND LIKE SINGING, WITH HER EYES CLOSE, NO SIGN OF SOB OR ANY RESPIRATORY DISCOMFORT, WILL CONTINUE TO MONITOR.
[2018-03-26 20:00] VITALS: BP 122/69
[2018-03-26] MEDS: ATORVASTATIN 10 MG TABLET PO SCH (21:44)
[2018-03-26] MEDS: MIRTAZAPINE 15 MG TABLET PO SCH (21:44)
[2018-03-27] MEDS: CEFTRIAXONE 1 G in IV NS 0.9% 50 ML IV SCH (00:34)
--- NOTE | 2018-03-27 04:53 | NUR ---
RN NOTES: SPONGE BATH AND SKIN TREATMENT RENDERED, PASS SMALL AMOUNT OF STOOL, CLEAN AND CHANGE, KEPT COMFORTABLE IN BED,CALL LIGHT WITHIN EASY REACH.
--- NOTE | 2018-03-27 06:53 | NUR ---
RN NOTES: AWAKE, SMILING AND ANSWERING QUESTION, NO PAIN OR DISCOMFORT,NO SOB,CALL LIGHT WITHIN EASY REACH, ENDORSED FOR CONTINUITY OF CARE.
[2018-03-27] MEDS: IV NS 0.9% 1,000 ML IV PRN ×2 (07:00→21:39)
--- NOTE | 2018-03-27 07:43 | NUR ---
MS RN NOTES PATIENT RESTING INSIDE ROOM. AWAKE, ALERT, VERBALLY RESPONSIVE AND RESPONDS TO VERBAL AND TACTILE STIMULI. BREATHING EVEN AND UNLABORED. NO SOB OR ACUTE DISTRESS NOTED AT THIS TIME. PATIENT CALM AND RELAXED. NO CHANGES IN LOC NOTED AT THIS TIME. PATIENT AFEBRILE, SKIN DRY AND WARM TO TOUCH. IV SITE INTACT AND PATENT, NO SWELLING OR BLEEDING NOTED AT THIS TIME. WILL CONTINUE TO MONITOR. BED LOCKED AND IN LOW POSITION. BILATERAL UPPER SIDE RAILS UP AND LOCKED. CALL LIGHT WITHIN EASY REACH.
[2018-03-27 08:00] VITALS: BP 145/73
[2018-03-27] MEDS: CARVEDILOL 12.5 MG TABLET PO SCH ×2 (08:15→16:22)
[2018-03-27] MEDS: VALSARTAN 80 MG TABLET PO SCH (08:15)
[2018-03-27] MEDS: ASPIRIN 81 MG TAB.CHEW PO SCH (08:15)
[2018-03-27] MEDS: CHOLECALCIFEROL 1,000 UNIT TABLET (VIT D3) PO SCH (08:15)
[2018-03-27] MEDS: MULTIVIT, IRON, MIN NO. 8, FA 1 TAB PO SCH (08:15)
[2018-03-27] MEDS: SALINE NASAL SPRAY 0.65% 1 BOTTLE BOTTLE NS SCH ×3 (08:16→16:22)
[2018-03-27] MEDS: Z GUARD REMEDY 2 OZ OINT TP SCH (08:16)
[2018-03-27] MEDS: ALBUTEROL HALF STRENGTH 1.25 MG/3 ML VIAL.NEB NEB SCH ×4 (08:31→19:14)
[2018-03-27] MEDS: PSYLLIUM SEED 1 PKT PACKET PO SCH (11:13)
[2018-03-27 16:00] VITALS: BP 153/65
--- NOTE | 2018-03-27 19:03 | NUR ---
MS RN NOTES PATIENT RESTING INSIDE ROOM. AWAKE, ALERT, VERBALLY RESPONSIVE AND RESPONDS TO VERBAL AND TACTILE STIMULI. BREATHING EVEN AND UNLABORED. NO SOB OR ACUTE DISTRESS NOTED AT THIS TIME. NO CHANGES IN LOC NOTED AT THIS TIME. PATIENT AFEBRILE, SKIN DRY AND WARM TO TOUCH. IV PULLED OUT, MINIMAL BLEEDING NOTED, PRESSURE DRESSING APPLIED. NEW IV INSERTED ON LEFT WRIST, g22, PATENT AND FLUSHED, WRAPPED WITH GERISLEEVE TO PREVENT PATIENT FROM PULLING IV. WILL ENDORSE TO INCOMING SHIFT FOR BRANDT. BED LOCKED AND IN LOW POSITION. BILATERAL UPPER SIDE RAILS UP AND LOCKED. CALL LIGHT WITHIN EASY REACH
--- NOTE | 2018-03-27 19:30 | NUR ---
RN NOTES RECEIVED PT. AWAKE ON BED, A/OX1-2, IV FLUID NS RUNNING @ 75ML/HR, NO PAIN NOTED, NO SOB, BED IN LOCKED POSITION, CALL LIGHT WITHIN REACH, SIDERAILSUPX2, CONTINUE TO MONITOR
[2018-03-27 20:00] VITALS: BP 165/67
[2018-03-27] MEDS: ATORVASTATIN 10 MG TABLET PO SCH (21:33)
[2018-03-27] MEDS: MIRTAZAPINE 15 MG TABLET PO SCH (21:33)
[2018-03-27 23:20] VITALS: BP 165/67
[2018-03-28] MEDS: CEFTRIAXONE 1 G in IV NS 0.9% 50 ML IV SCH (01:25)
--- NOTE | 2018-03-28 06:24 | NUR ---
RN NOTES PT. IS AWAKE, MORNING CARE RENDERED, BED IN LOCKED POSITION, NO PAIN NOTED, NO SOB, CALL LIGHT WITHIN REACH, PT. NEEDS ATTENDED
[2018-03-28] MEDS: ALBUTEROL HALF STRENGTH 1.25 MG/3 ML VIAL.NEB NEB SCH ×2 (06:57→12:11)
--- NOTE | 2018-03-28 07:20 | NUR ---
MS/RN OPENING NOTE PATIENT IS RECEIVED IN BED AWAKE. ALERT AND ORIENTED X2. DENIES SOB. ON OXYGEN AT 2L/MIN VIA NC. RESPIRATION REGULAR AND UNLABORED. DENIES PAIN. PATIENT IN NO APPARENT DISTRESS. LEFT WRIST G 20 PATENT AND IV INFUSING WITH NO S/S INFILTRATION. BED LOW AND LOCKED. SIDE RAILS UP X2. CALL LIGHT WITHIN REACH. WILL CONTINUE TO MONITOR.
[2018-03-28 08:00] VITALS: BP 160/77
[2018-03-28] MEDS: ASPIRIN 81 MG TAB.CHEW PO SCH (08:03)
[2018-03-28] MEDS: CHOLECALCIFEROL 1,000 UNIT TABLET (VIT D3) PO SCH (08:03)
[2018-03-28 08:04] VITALS: BP 160/77
[2018-03-28] MEDS: MULTIVIT, IRON, MIN NO. 8, FA 1 TAB PO SCH (08:04)
[2018-03-28] MEDS: CARVEDILOL 12.5 MG TABLET PO SCH (08:04)
[2018-03-28] MEDS: VALSARTAN 80 MG TABLET PO SCH (08:04)
[2018-03-28] MEDS: Z GUARD REMEDY 2 OZ OINT TP SCH (08:05)
[2018-03-28] MEDS: SALINE NASAL SPRAY 0.65% 1 BOTTLE BOTTLE NS SCH ×2 (08:08→12:12)
[2018-03-28] MEDS: PSYLLIUM SEED 1 PKT PACKET PO SCH (11:34)
--- NOTE | 2018-03-28 14:03 | NUR ---
MS/RN CLOSING NOTE PATIENT ALERT AND ORIENTED X2. DENIES SOB. RESPIRATION REGULAR AND UNLABORED. DISCHARGE INSTRUCTION/EDUCATION PROVIDED TO THE PATIENT AND . THEY VERBALIZED UNDERSTANDING. REPORT GIVEN TO JOSE. PATIENT LEFT THE HOSPITAL ON A GURNEY AND IN STABLE CONDITION.
== END 2018-03-28 14:15 | DRG 689 ==
LOC: ER 20:03 → MED 22:31
PROVIDERS: ADMIT Nurse Practitioner Primary Care; ATTEND Nurse Practitioner Primary Care
DX: N39.0 Urinary tract infection, site not specified (principal); G93.41 Metabolic encephalopathy; E11.9 Type 2 diabetes mellitus without complications; F03.90 Unspecified dementia, unspecified severity, without behavioral disturbance, psychotic disturbance, mood disturbance, and anxiety; E87.1 Hypo-osmolality and hyponatremia; F20.9 Schizophrenia, unspecified; I10 Essential (primary) hypertension; I25.10 Atherosclerotic heart disease of native coronary artery without angina pectoris; I25.2 Old myocardial infarction; I70.0 Atherosclerosis of aorta; K21.9 Gastro-esophageal reflux disease without esophagitis; Z89.611 Acquired absence of right leg above knee; Z79.899 Other long term (current) drug therapy; Z79.82 Long term (current) use of aspirin; F41.9 Anxiety disorder, unspecified; R91.1 Solitary pulmonary nodule
CPT/HCPCS: 36415; 71045-TC; 80048-TC; 81000-TC; 85025-TC; 87081-TC; 87086-TC; 87186-TC; 97110-TC; 97530-TC; A4216; A4606; J0696; J2543; J7030; J7060; Z7610